=== PATIENT | female | born 1985 | race Caucasian/White ===

== ENCOUNTER → 2019-03-03 | Outpatient (REF) | payer BC ==
[2019-03-07 14:25] LABS: HPV HYBRID CAPTURE II Negative (Negative)
== END ==
LOC: M LAB LCGH 15:05
PROVIDERS: ATTEND Nurse Practitioner Adult Health
DX: Z12.4 Encounter for screening for malignant neoplasm of cervix (principal)
CPT/HCPCS: 87624; G0123